=== PATIENT | female | born 1990 ===

== ENCOUNTER 2017-09-25 10:16 | Emergency (ER) | payer SELFPAY ==
[2017-09-25 10:48] VITALS: TEMP 98.2; O2SAT 99
[2017-09-25 11:11] LABS: RBC 4.69 Mil/uL (3.80-5.20)
[2017-09-25 11:12] LABS: BASO % 0.5 % (0.0-2.0); EOS # 0.1 K/uL (0.0-0.7); EOS % 1.8 % (0.0-4.0); HEMOGLOBIN 12.8 g/dL (12.0-16.0); LYMPH # 2.9 K/uL (1.0-4.3); MEAN CELL VOLUME 82.6 fl (81.0-99.0); MEAN CORPUSCULAR HEMOGLOBIN 27.2 pg (27.0-31.0); MEAN PLATELET VOLUME 7.8 fl (7.2-11.7); MONO # 0.6 K/uL (0.0-0.8); MONO % 7.5 % (0.0-10.0); NEUT # 4.2 K/uL (1.8-7.0); NEUT % 53.2 % (50.0-75.0); NRBC % 0.4 % (0.0-0.0)
[2017-09-25 11:18] LABS: ALB/GLOB RATIO 1.2 (1.0-2.1); ALT/SGPT 36 U/L (9-52); AST/SGOT 26 U/L (14-36); BLOOD UREA NITROGEN 13 mg/dl (7-17); CALCIUM 8.7 mg/dL (8.4-10.2); GFR AFRICAN-AMERICAN > 60; GFR NON-AFRICAN AMERICAN > 60; LIPASE 149 U/L (23-300)
--- NOTE | 2017-09-25 11:20 | ED PDOC ---
HPI: Abdomen Time Seen by Provider: 09/25/17 10:36 Chief Complaint (Nursing): Abdominal Pain Chief Complaint (Provider): Abdominal Pain History Per: Patient History/Exam Limitations: no limitations Onset/Duration Of Symptoms: Days (x3 weeks) Outside of [place] travel?: No Current Symptoms Are (Timing): Intermittent Episodes Quality Of Discomfort: "Pain" Associated Symptoms: denies: Fever, Chills, Nausea, Vomiting, Diarrhea, Chest Pain Additional Complaint(s): 27 year old female with a history of pre-DM, presents to the ED for evaluation of intermittent right sided abdominal pain x3 weeks. Patient further reports concern for hematuria as well as the toilet paper sometimes looks tinted pink or red after she wipes. She describes the pain as a 5 out of 10 in severity when it is present. Patient denies taking medications G[employer]ER. She states she has one sexual partner and no history of STDs; patient also denies concern for STDs at present. Patient denies history of kidney stones, fever, chills, bloody stools, dysuria, urinary frequency, vaginal discharge or bleeding, nausea, vomiting, diarrhea, chest pain, shortness of breath, or any other medical complaints. PMD: Dr. Choco Ma CELL PREPARER: None Abnormal Vaginal Bleeding: No Last Menstral Period: 09/09/17 Past Medical History Reviewed: Historical Data, Nursing Documentation, Vital Signs Vital Signs: Last Vital Signs Temp 98.2 F 09/25/17 10:47 Pulse 60 09/25/17 12:00 Resp 19 09/25/17 12:00 BP 135/68 09/25/17 12:00 Pulse Ox 99 09/25/17 12:27 - Medical History Other PMH: pre-DM - Surgical History Surgical History: (x2) - Family History Family History: States: Unknown Family Hx - Social History Current smoker - smoking cessation education provided: No Ex-Smoker (has not smoked in the last 12 months): No Alcohol: Social Drugs: Denies - Home Medications Home Medications: Ambulatory Orders Medication Instructions Recorded Naproxen 500 mg PO BID #20 tab 09/25/17 - Allergies Allergies/Adverse Reactions: Allergies Allergy/AdvReac Type Severity Reaction Status Date / Time No Known Allergies Allergy Verified 09/25/17 10:32 Review of Systems ROS Statement: Except As Marked, All Systems Reviewed And Found Negative Gastrointestinal: Positive for: Abdominal Pain (right sided) Genitourinary Female: Positive for: Hematuria (possible) Physical Exam - Reviewed Nursing Documentation Reviewed: Yes Vital Signs Reviewed: Yes - Physical Exam Comments: GENERAL APPEARANCE: Patient is awake, alert, oriented x 3, resting comfortably. No acute distress. SKIN: Warm, dry; (-) cyanosis. EYES: (-) conjunctival pallor, (-) scleral icterus. NECK: Supple, FROM (-) tenderness, (-) stiffness, (-) lymphadenopathy. CHEST AND RESPIRATORY: (-) rales, (-) rhonchi, (-) wheezes; breath sounds equal bilaterally. Respirations even and nonlabored, speaking in full sentences. HEART AND CARDIOVASCULAR: (-) irregularity; (-) murmur, (-) gallop. ABDOMEN AND GI: Soft (-) distention (+) mild suprapubic tenderness to palpation. Bowel sounds active x4; (-) guarding, (-) rebound, (-) palpable masses, (-) CVA tenderness EXTREMITIES: (-) deformity, (-) edema, (+) distal pulses. NEURO AND PSYCH: Mental status as above; (-) focal findings. Gait steady, speech clear. (-) facial asymmetry (-) aphasia (-) slurred speech. - Laboratory Results Result Diagrams: 09/25/17 11:00 09/25/17 11:00 Urine POC: Negative Urine dip results: Positive for: Ketones (trace). Negative for: Leukocyte Esterase, Blood, Nitrate, Glucose, Bilirubin, Protein - ECG O2 Sat by Pulse Oximetry: 99 (RA) Pulse Ox Interpretation: Normal Medical Decision Making Medical Decision Making: Time: 10:44 Initial Impression: 27 year old with abdominal pain, concern for hematuria Initial Plan: --CMP --Lipase --Urine preg --Urine dip --CBC with differentials --Toradol 30 mg IVP --Urine culture --IV insertion --Urinalysis Upreg: Negative Udip: unremarkable U/A: unremarkable Labs: WNL 1150 On re-evaluation, patient reports improvement of symptoms, denies any abdominal pain at present. On exam, patient remains AAOx3, in no acute distress. Lungs clear to auscultation, cardiac RRR, abdomen soft, non-tender, repeat neuro exam shows no focal findings. Repeat BP: 135/68 Repeat HR: 60 VSS, stable for discharge. Lab/Diagnostic results d/w the patient in great detail. Diagnosis of abdominal pain, concern for hematuria d/w the patient. Based on history, exam and diagnostic results, plan will be for outpatient follow up. Patient instructed to follow-up with pmd / referral provided / the clinic in 1- 2 days without fail. Advised to take medication as prescribed. Return to the emergency room at any time for any new or worsening symptoms. Patient states she fully agrees with and understands discharge instructions. States that she agrees with the plan and disposition. Verbalized and repeated discharge instructions and plan. I have given the patient opportunity to ask any additional questions. Scribe Attestation: Documented by Adamaris Cano, acting as a scribe for Destiny Santos PA-C Provider Scribe Attestation: All medical record entries made by the Scribe were at my direction and personally dictated by me. I have reviewed the chart and agree that the record accurately reflects my personal performance of the history, physical exam, medical decision making, and the department course for this patient. I have also personally directed, reviewed, and agree with the discharge instructions and disposition. Disposition - Clinical Impression Clinical Impression: Abdominal pain - Patient ED Disposition Is Patient to be Admitted: No Counseled Patient/Family Regarding: Studies Performed, Diagnosis, Need For Followup, Rx Given - Disposition [facility] Disposition: Routine/Home Disposition Time: 11:53 Condition: STABLE Additional Instructions: FOLLOW UP WITH PMD/CELL PREPARER IN 1-2 DAYS WITHOUT FAIL FOR FURTHER EVALUATION. RETURN TO ED WITH ANY NEW OR WORSENING SYMPTOMS. Prescriptions: Naproxen 500 mg PO BID #20 tab Instructions: Acute Abdomen (Belly Pain) Forms: [employer] (Armenian) Print Language: TAJIK - POA Present On Arrival: None Results - Lab Results Lab Results: 09/25/17 09/25/17 09/25/17 11:00 11:00 11:00 WBC 8.0 RBC 4.69 Hgb 12.8 Hct 38.7 MCV 82.6 MCH 27.2 MCHC 33.0 RDW 14.0 Plt Count 308 MPV 7.8 Neut % (Auto) 53.2 Lymph % (Auto) 37.0 [place] % (Auto) 7.5 Eos % (Auto) 1.8 Baso % (Auto) 0.5 Neut # (Auto) 4.2 Lymph # (Auto) 2.9 [place] # (Auto) 0.6 Eos # (Auto) 0.1 Baso # (Auto) 0.0 Sodium 141 Potassium 3.9 Chloride 102 Carbon Dioxide 28 Anion Gap 15 BUN 13 Creatinine 0.6 L Est GFR ( Amer) > 60 Est GFR (Non-Af Amer) > 60 Random Glucose 108 H Calcium 8.7 Total Bilirubin 0.5 AST 26 ALT 36 Alkaline Phosphatase 82 Total Protein 7.3 Albumin 4.0 Globulin 3.4 Albumin/Globulin Ratio 1.2 Lipase 149 Urine Color Yellow Urine Clarity Slighty-cloudy Urine pH 6.0 Ur Specific [place] 1.028 Urine Protein 30 Urine Glucose (UA) Neg Urine Ketones Trace Urine Blood Negative Urine Nitrate Negative Urine Bilirubin Negative Urine Urobilinogen 0.2-1.0 Ur Leukocyte Esterase Neg Urine RBC (Auto) 2 Urine Microscopic WBC < 1 Ur Squamous Epith Cells 1 Urine Bacteria Rare
[2017-09-25 11:33] LABS: SQUAMOUS EPITHIAL 1 /hpf (0-5); URINE BACTERIA RARE (<OCC); URINE BILIRUBIN NEGATIVE (NEGATIVE); URINE BLOOD NEGATIVE (NEGATIVE); URINE CLARITY SLIGHTY-CLOUDY (Clear); URINE COLOR YELLOW (YELLOW); URINE GLUCOSE (UA) NEG (Normal); URINE LEUKOCYTE ESTERASE NEG Leu/uL (Negative); URINE PROTEIN 30 mg/dL (NEGATIVE); URINE UROBILINOGEN 0.2-1.0 mg/dL (0.2-1.0)
[2017-09-25 12:01] VITALS: BP 135/68; PULSE 60; RESP 19
== END 2017-09-25 12:48 | disposition home or self-care (01) ==
LOC: H.ER 10:16
DX: R10.9 Unspecified abdominal pain (principal); Z87.891 Personal history of nicotine dependence
CPT/HCPCS: 80053; 81003; 81025; 83690; 85025; 87086; 96374; 99282; J1885